=== PATIENT | female | born 1955 | race Caucasian/White ===

== ENCOUNTER 2023-11-04 20:33 | Emergency (ER) | payer MEDICARE, MEDICAID ==
[~2023-11-04] VITALS: Ht 160 cm; Wt 75.0 kg
[2023-11-04 20:39] VITALS: TEMP 97.9; O2SAT 98
[2023-11-04] MEDS ORDERED: ACETAMINOPHEN 500MG TABLET PO ONE (23:00)
[2023-11-05] MEDS: ACETAMINOPHEN 500MG TABLET PO NR (00:47)
[2023-11-05] MEDS ORDERED: IBUP-2029 MT (01:25)
[2023-11-05 02:32] VITALS: BP 157/52; PULSE 66; RESP 15
== END 2023-11-05 03:39 | disposition home or self-care (01) ==
LOC: ER 20:33
DX: S00.83XA Contusion of other part of head, initial encounter (principal); S40.012A Contusion of left shoulder, initial encounter; S90.32XA Contusion of left foot, initial encounter; W18.39XA Other fall on same level, initial encounter; Y93.89 Activity, other specified; Y92.89 Other specified places as the place of occurrence of the external cause; Y99.8 Other external cause status
CPT/HCPCS: 70486; 71101; 73030; 73620; 99284